=== PATIENT | male | born 1990 | race Caucasian/White ===

== ENCOUNTER 2016-11-26 17:50 | Emergency (ER) | payer OTHER, BC ==
[~2016-11-26] VITALS: Ht 188 cm; Wt 121.0 kg
[2016-11-26 17:53] VITALS: Ht 188 cm; Wt 121.0 kg
[2016-11-26] MEDS ORDERED: CEFTRIAXONE 250 MG INJ IM ONE (18:30)
[2016-11-26] MEDS ORDERED: AZITHROMYCIN 250 MG TAB PO ONE (18:30)
--- NOTE | 2016-11-26 18:39 | ERD ---
ER Documentation Chief Complaint Date/Time DATE: 11/26/16 TIME: 18:37 Chief Complaint HAD UNPROTECTED SEX, C/O ITCHYNESS HPI 26-year-old male who presents the emergency room with irritation to the glans of his penis and urethra. The patient describes several days of symptoms. Recent unprotected intercourse. Prior history of STD. No fevers or chills or testicular pain, no flank pain or back pain. No dysuria urgency or frequency. ROS All systems reviewed and are negative except as per history of present illness. Allergies Allergies: Coded Allergies: No Known Allergy (Unverified , 11/26/16) PMhx/Soc Medical and Surgical Hx: pt denies Medical Hx, pt denies Surgical Hx Physical Exam Vitals Vital Signs Date Time Temp Pulse Resp B/P Pulse Ox O2 Delivery O2 Flow Rate FiO2 11/26/16 17:53 98.8 85 18 145/70 99 Physical Exam General: Well developed, well nourished, no acute distress Head: Normocephalic, atraumatic. Eyes: EOM intact ENT: Moist mucous membranes Neck: Full ROM Respiratory: No respiratory distress Cardiovascular: Good capillary refil Abdominal: Nondistended : Circumcised male, no lesions to the glans penis no vesicular lesions to the shaft of the penis, normal testicles bilaterally without focal tenderness or swelling, no drainage or discharge, no lymphadenopathy MSK: No edema, no unilateral swelling, 5/5 strength Neurologic: Alert and oriented, moving all extremities, normal speech, steady gait Skin: No rash Psych: Normal mood Results 24 hrs Current Medications Medications (Trade) Dose Ordered Sig/Carmina Route PRN Reason Start Time Stop Time Status Last Admin Dose Admin Ceftriaxone Sodium (Rocephin) 250 mg ONCE ONCE IM 11/26/16 18:30 11/26/16 18:31 DC Azithromycin (Zithromax) 1,000 mg ONCE ONCE PO 11/26/16 18:30 11/26/16 18:31 DC Procedures/MDM The patient has signs and symptoms concerning for urethritis likely secondary to STD. The patient will benefit from ceftriaxone and azithromycin. The risks , benefits, alternatives discussed with the patient. No signs or symptoms concerning for epididymitis, orchitis, UTI. No evidence of vesicular lesions to suggest herpes. Empiric treatment recommended. Patient agrees. Outpatient HIV testing and partner testing recommended. We discussed follow up with the patient's primary care doctor within 24 to 48 hours as needed. We also discussed return to the emergency room for worsening symptoms or worsening condition. Outpatient referral: [None required] Departure Diagnosis: Primary Impression: Urethritis Condition: Good Patient Instructions: What Are Sexually Transmitted Diseases (STDs)?, Urethritis, Male (Infec Vs Inflam), Adult Referrals: [facility] YOU HAVE RECEIVED A MEDICAL SCREENING EXAM AND THE RESULTS INDICATE THAT YOU DO NOT HAVE A CONDITION THAT REQUIRES URGENT TREATMENT IN THE EMERGENCY DEPARTMENT. FURTHER EVALUATION AND TREATMENT OF YOUR CONDITION CAN WAIT UNTIL YOU ARE SEEN IN YOUR DOCTORS OFFICE WITHIN THE NEXT 1-2 DAYS. IT IS YOUR RESPONSIBILITY TO MAKE AN APPOINTMENT FOR FOLOW-UP CARE. IF YOU HAVE A PRIMARY DOCTOR --you should call your primary doctor and schedule an appointment IF YOU DO NOT HAVE A PRIMARY DOCTOR YOU CAN CALL OUR PHYSICIAN REFERRAL HOTLINE AT IF YOU CAN NOT AFFORD TO SEE A PHYSICIAN YOU CAN CHOSE FROM THE FOLLOWING [facility] [id number] [facility]. [facility] [address] [facility] [facility] [address] [facility] [address] [facility]. [facility] [address] [facility]. [facility]. [address] ERIK SCHREIBER MD Nov 26, 2016 18:39
[2016-11-26 19:13] VITALS: BP 159/67; PULSE 73; RESP 16
== END 2016-11-26 19:14 | disposition home or self-care (01) ==
LOC: FTE 17:50
DX: N34.2 Other urethritis (principal)
CPT/HCPCS: 87591; J0696; 96372

== ENCOUNTER 2019-03-20 16:38 | Emergency (ER) | payer BC, OTHER ==
[~2019-03-20] VITALS: Ht 185.4 cm; Wt 112.2 kg
[2019-03-20 16:41] VITALS: BP 157/67; PULSE 87; RESP 16; Ht 185.4 cm; Wt 112.2 kg
[2019-03-20] MEDS ORDERED: LIDOCAINE 1% (MPF) 5 ML VIAL INFIL ONE (19:30)
[2019-03-20] MEDS ORDERED: AZITHROMYCIN 500 MG TAB PO ONE (19:30)
[2019-03-20] MEDS ORDERED: CEFTRIAXONE 250 MG INJ IM ONE (19:30)
== END 2019-03-20 19:48 | disposition home or self-care (01) ==
LOC: FTE 16:38
DX: Z20.2 Contact with and (suspected) exposure to infections with a predominantly sexual mode of transmission (principal)
CPT/HCPCS: 87086; 87591; 96372; J0696; Z7502; Z7610